=== PATIENT | female | born 1960 | race African-American/Black ===

== ENCOUNTER 2016-10-22 18:58 | Emergency (ER) | payer BC ==
[~2016-10-22 18:58] MED LIST: AMIT100 PO; APRES25 PO; ASAB PO; COZAAR100 MG PO; CRESTOR5 MG PO; DSS PO; FAMVIR250 MG PO; FERROUS SULF325 M1 PO; FIORICET OR; HALF81 PO; INSNOVR PO; L40 PO; L80 PO; LEVEMFLXPN SC; LEVEMIR SC; LOP25 PO; NORV5 PO; NOVOPEN SC; TOPAMAX25 PO; TRAZ50 PO; ZANTAC150 MG PO
[2016-10-22 20:15] LABS: BASOPHILS 0.3 %; BASOPHILS ABSOLUTE 0.02 10/3/uL (0.0-0.16); EOSINOPHILS 3.3 %; EOSINOPHILS ABSOLUTE 0.26 10/3/uL (0.0-0.53); HEMATOCRIT 28.3 % (36.0-48.0); HEMOGLOBIN 9.4 g/dL (12.0-16.0); IMMATURE GRANULOCYTES 0.1 %; IMMATURE GRANULOCYTES ABSOLUTE 0.01 10/3/uL (0.0-0.11); LYMPHOCYTES 43.1 %; LYMPHOCYTES ABSOLUTE 3.41 10/3/uL (0.67-4.30); MEAN CORPUS HGB CONC 33.2 g/dL (32.0-36.0); MEAN CORPUSCULAR HEMOGLOB 28.7 pg (26.0-34.0); MEAN CORPUSCULAR VOLUME 86.5 fL (80-100); MEAN PLATELET VOLUME 9.5 fL (9.2-13.0); MONOCYTES 6.4 %; MONOCYTES ABSOLUTE 0.51 10/3/uL (0.21-1.20); NEUTROPHILS 46.8 %; NEUTROPHILS ABSOLUTE 3.71 10/3/uL (2.02-8.40); PLATELET COUNT 377 10/3/uL (150-400); RBC DISTRIBUTION WIDTH 12.6 % (12.0-16.0); RED CELL COUNT 3.27 10/6/uL (4.0-5.6); WHITE BLOOD CELLS 7.9 10/3/uL (4.5-10.5)
[2016-10-22 20:18] LABS: MANUAL DIFF NO %
[2016-10-22 20:25] LABS: PROTIME (NOT ORD) 12.7 SEC (12.0-14.5)
[2016-10-22 20:28] LABS: A/G RATIO 0.6 (0.7-1.9); ALBUMIN 2.7 G/DL (3.5-5.0); ALKALINE PHOSPHATASE 110 U/L (45-117); CALCIUM, SERUM 8.2 MG/DL (8.5-10.4); CHLORIDE, SERUM 109 MMOL/L (96-112); CO2 (CARBON DIOXIDE) 25 MMOL/L (24-34); CREATININE 2.61 MG/DL (0.55-1.02); GFR AFRICAN AMERICAN 23 ML/MIN (>=60); GFR NON AFRICAN AMERICAN 20 ML/MIN (>=60); GLOBULIN 4.6 G/DL (2.5-4.1); POTASSIUM, SERUM 4.5 MMOL/L (3.5-5.3); SGOT(AST) 17 U/L (5-40); SGPT(ALT) 30 U/L (5-65); SODIUM, SERUM 141 MMOL/L (135-148); TOTAL PROTEIN 7.3 G/DL (6.0-8.5)
[2016-10-22 20:30] LABS: BUN (BLOOD UREA NITROGEN) 44 MG/DL (6-23); GLUCOSE, SERUM 104 MG/DL (60-99); TOTAL BILIRUBIN < 0.1 MG/DL (0-1.2)
[2017-01-05] MEDS ORDERED: COZAAR100 MG PO (17:13)
[2017-01-05] MEDS ORDERED: LEVEMIR SC (17:13)
[2017-01-05] MEDS ORDERED: NOVOLOG SC (17:13)
[2017-01-05] MEDS ORDERED: CRESTOR5 MG PO (17:14)
[2017-01-05] MEDS ORDERED: FERROUS SULF325 M1 PO (17:14)
[2017-01-05] MEDS ORDERED: NORV5 PO (17:15)
[2017-01-05] MEDS ORDERED: VITAMIN D31000 UNIT PO (17:15)
[2017-01-05] MEDS ORDERED: SPIRO25 PO (17:15)
[2017-01-05] MEDS ORDERED: HALF81 PO (17:17)
[2017-01-05] MEDS ORDERED: DULCOLAX STOOL100 MG PO (17:17)
[2017-01-05] MEDS ORDERED: APRES25 PO (17:18)
[2017-01-05] MEDS ORDERED: LOP50 PO (17:18)
[2017-01-05] MEDS ORDERED: ZANTAC150 MG PO (17:18)
[2017-01-05] MEDS ORDERED: L40 PO (17:19)
[2017-01-05] MEDS ORDERED: L80 PO (17:19)
[2017-01-05] MEDS ORDERED: PEPTO BISMOL LIQ1 ML PO (17:19)
[2017-01-05] MEDS ORDERED: AMIT100 PO (17:19)
== END 2016-10-22 21:13 | disposition home or self-care (01) ==
LOC: ER 18:58
PROVIDERS: Emergency Medicine
DX: I12.9 Hypertensive chronic kidney disease with stage 1 through stage 4 chronic kidney disease, or unspecified chronic kidney disease (principal); N18.9 Chronic kidney disease, unspecified; D64.9 Anemia, unspecified; I25.2 Old myocardial infarction; J45.909 Unspecified asthma, uncomplicated; J44.9 Chronic obstructive pulmonary disease, unspecified; I50.9 Heart failure, unspecified; E11.9 Type 2 diabetes mellitus without complications; Z88.8 Allergy status to other drugs, medicaments and biological substances; Z79.899 Other long term (current) drug therapy; Z79.82 Long term (current) use of aspirin; Z79.4 Long term (current) use of insulin
CPT/HCPCS: 70450; 80053; 85025; 85610; 85730; 99284; A9270-GY